=== PATIENT | male | born 1975 | race Caucasian/White ===

== ENCOUNTER 2019-04-26 20:44 | Emergency (ER) | payer OTHER ==
[~2019-04-26] VITALS: Ht 172.7 cm; Wt 59.0 kg
[2019-04-26] MEDS ORDERED: ZITHROMAX250 MG PO (21:58)
[2019-04-26] MEDS ORDERED: PROAIR HFA8.5 GM INH (21:59)
[2019-04-26 22:07] VITALS: BP 120/68
== END 2019-04-26 22:39 | disposition home or self-care (01) ==
LOC: ER 20:44
DX: J18.9 Pneumonia, unspecified organism (principal); F17.210 Nicotine dependence, cigarettes, uncomplicated